=== PATIENT | female | born 1970 | race Caucasian/White ===

== ENCOUNTER 2021-02-01 15:13 | Outpatient (CLI) | payer OTHER ==
[2021-02-01] MEDS ORDERED: AMIT25TA PO (15:44)
[2021-02-01] MEDS ORDERED: [UNRECOGNIZED DRUG - OTHER] PO (15:44)
[2021-02-01] MEDS ORDERED: amitriptyline PO (15:44)
[2021-02-01] MEDS ORDERED: [UNRECOGNIZED DRUG - OTHER] PO (15:44)
[2021-02-01] MEDS ORDERED: ALPR0.5T7 PO (15:44)
== END 2021-02-01 23:59 | disposition home or self-care (01) ==
LOC: STAR 15:13
PROVIDERS: ATTEND Obstetrics & Gynecology
DX: Z02.9 Encounter for administrative examinations, unspecified (principal)

== ENCOUNTER 2021-02-05 05:26 | Day surgery (SDC) | payer BC, OTHER ==
[2021-02-01 16:24] LABS: BASOPHILS % (AUTO) 1 % (0-1); EOSINOPHILS % (AUTO) 0 % (1-7); LYMPHOCYTES % (AUTO) 29 % (22-44); MEAN CORPUSCULAR HEMOGLOBIN 31.1 pg (27.0-34.8); MEAN CORPUSCULAR HGB CONC 34.4 g/dL (32.4-35.8); MEAN PLATELET VOLUME 7.8 fL (7.4-10.4); MONOCYTES % (AUTO) 7 % (2-9); NEUTROPHILS % (AUTO) 63 % (42-75); PLATELET COUNT 266 x10^3/uL (130-400); RED BLOOD COUNT 4.58 x10^6/uL (3.82-5.3); RED CELL DISTRIBUTION WIDTH 13.3 % (9.6-15.2)
[2021-02-01 16:25] LABS: MD NO
[2021-02-01 16:26] LABS: MICROSCOPIC NOT IND
[2021-02-01 16:31] LABS: ANION GAP 5 mmol/L (5-15); CALCIUM 8.4 mg/dL (8.5-10.1); CHLORIDE 106 mmol/L (98-107); CREATININE 0.63 mg/dL (0.55-1.02)
[~2021-02-05] VITALS: Ht 165.1 cm; Wt 52.0 kg
[~2021-02-05 05:26] MED LIST: ALPR0.5T7 PO; AMIT25TA PO; [UNRECOGNIZED DRUG - OTHER] PO; [UNRECOGNIZED DRUG - OTHER] PO; amitriptyline PO
[2021-02-05] MEDS ORDERED: ACETAMINOPHEN 500 MG TABLET PO ONE (06:30)
[2021-02-05] MEDS ORDERED: CHLORHEXIDINE 15 ML UDC PO ONE (06:30)
[2021-02-05] MEDS ORDERED: LACTATED RINGERS 1,000 ML IV SCH (06:30)
[2021-02-05] MEDS ORDERED: GABAPENTIN 300 MG CAPSULE PO ONE (06:30)
[2021-02-05] MEDS ORDERED: BUPIVACAINE/PF 0.25% ONE (06:49)
[2021-02-05] MEDS ORDERED: FENTANYL PF 100 MCG/2ML ONE (07:10)
[2021-02-05] MEDS ORDERED: HYDROmorphone 1 MG/ML, 1ML INJ ONE (07:10)
[2021-02-05] MEDS ORDERED: MIDAZOLAM 1 MG/ML, 2ML ONE (07:10)
[2021-02-05] MEDS ORDERED: KETOROLAC 30 MG/1 ML ONE (07:36)
[2021-02-05] MEDS ORDERED: ONDANSETRON 2MG/ML, 2ML ONE (07:36)
[2021-02-05] MEDS ORDERED: NEOSTIGMINE 1 MG/ML, 10ML ONE (07:36)
[2021-02-05] MEDS ORDERED: ROCURONIUM 10 MG/ML,10ML ONE (07:36)
[2021-02-05] MEDS ORDERED: CEFAZOLIN 1,000 MG ONE (07:36)
[2021-02-05] MEDS ORDERED: DEXAMETHASONE 4 MG/ML, 1ML ONE (07:36)
[2021-02-05] MEDS ORDERED: PROPOFOL 10 MG/ML, 20ML ONE (07:36)
[2021-02-05] MEDS ORDERED: GLYCOPYRROLATE 0.2MG/1ML, 5ML ONE (07:36)
[2021-02-05] MEDS ORDERED: LABETALOL 5MG/ML, 20ML IV PRN (08:00)
[2021-02-05] MEDS ORDERED: EPHEDRINE 50 MG/ML, 1ML IVPush PRN (08:00)
[2021-02-05] MEDS ORDERED: DIPHENHYDRAMINE 50 MG/ML, 1ML IVPush PRN (08:00)
[2021-02-05] MEDS ORDERED: METOCLOPRAMIDE 5 MG/ML, 2ML IVPush PRN (08:00)
[2021-02-05] MEDS ORDERED: DIAZEPAM 5 MG/ML, 2ML IVPush PRN (08:00)
[2021-02-05] MEDS ORDERED: PROMETHAZINE 25 MG/ML, 1ML IVPush PRN (08:00)
[2021-02-05] MEDS ORDERED: hydrALAzine 20 MG/ML, 1ML IV PRN (08:00)
[2021-02-05] MEDS ORDERED: ONDANSETRON 2MG/ML, 2ML IVPush PRN (08:00)
[2021-02-05] MEDS ORDERED: OXYcodone 5 MG/5 ML ORAL.SOL UDC PO PRN (08:00)
[2021-02-05] MEDS ORDERED: HYDROmorphone 1 MG/ML, 1ML INJ IVPush PRN (08:00)
[2021-02-05] MEDS ORDERED: HALOPERIDOL 5 MG/ML IV PRN (08:00)
[2021-02-05] MEDS ORDERED: METOPROLOL 1 MG/ML, 5ML IV PRN (08:00)
[2021-02-05] MEDS ORDERED: FENTANYL PF 100 MCG/2ML IV PRN (08:00)
[2021-02-05] MEDS ORDERED: MEPERIDINE/PF 25MG/0.5ML IVPush PRN (08:00)
[2021-02-05] MEDS ORDERED: ACETAMINOPHEN 325 MG TABLET PO PRN (08:00)
== END 2021-02-05 10:00 | disposition home or self-care (01) ==
LOC: OUT 05:26
PROVIDERS: ATTEND Obstetrics & Gynecology
DX: D27.0 Benign neoplasm of right ovary (principal); N83.8 Other noninflammatory disorders of ovary, fallopian tube and broad ligament; D68.61 Antiphospholipid syndrome; A69.20 Lyme disease, unspecified; F41.9 Anxiety disorder, unspecified; Z20.822 Contact with and (suspected) exposure to COVID-19; Z79.899 Other long term (current) drug therapy; Z88.0 Allergy status to penicillin; Z88.1 Allergy status to other antibiotic agents; Z98.890 Other specified postprocedural states; Z83.3 Family history of diabetes mellitus; Z82.62 Family history of osteoporosis
CPT/HCPCS: 36415; 58661; 80048; 81003; 85025; 88305; J0690; J1100; J1170; J1885; J2250; J2405; J2704; J2710; J3010; J7120; U0003; U0005